=== PATIENT | female | born 1965 | race African-American/Black ===

== ENCOUNTER 2019-02-27 10:01 | Observation (INO) ==
[2019-02-27] MEDS ORDERED: ASPIRIN 325 MG TABLET PO STA (10:22)
[2019-02-27] MEDS ORDERED: SODIUM CHLORIDE 0.9% 1,000 ML IV STA ×4 (10:26→13:51)
[2019-02-27] MEDS ORDERED: ONDANSETRON 4 MG/2 ML VIAL IV STA (10:27)
[2019-02-27] MEDS ORDERED: HYDROmorphone 2 MG/1 ML VIAL IV STA (10:27)
[2019-02-27 10:32] LABS: Basophils % 1.1 % (0.0-0.8); Hematocrit 41.4 VOL% (35.7-47.0); Hemoglobin 14.6 GM/DL (12.0-16.0); Immature Granulocytes % 0.6 %; Immature Granulocytes Absolute 0.02 #; Lymphocytes # 0.9 10*3/uL (1.4-4.0); Lymphocytes % 26.1 % (21.3-54.2); Mean Corpuscular HGB Conc 35.3 GM/DL (32-36); Mean Corpuscular Volume 91.8 FL (87-102); Mean Platelet Volume 9.3 FL (9.6-12.0); Monocytes % 7.6 % (1.7-12.7); Neutrophils % 64.6 % (38.7-73.9); Platelet Count 150 T/CUMM (130-400); Red Blood Count 4.51 MC/CUMM (3.8-5.5); White Blood Count 3.6 T/CUMM (4-12)
[2019-02-27 10:41] LABS: INR 1.1; Partial Thromboplastin Time 25.8 SECS (20.8-36.0)
[2019-02-27 11:00] LABS: Albumin 3.5 G/DL (3.4-5.0); Bilirubin,Total 1.9 MG/DL (0.2-1.0); Calcium 9.3 MG/DL (8.5-10.1); Osmolality,Calculated 274.5 MOS/KG (273-304); Total Protein 8.5 G/DL (6.4-8.3)
[2019-02-27 12:16] LABS: Apearance,Urine CLEAR (Clear); Bilirubin,Urine Negative (Negative); Blood, Urine Negative (Negative); Glucose,Urine (UA) Negative (Negative); Ketones,Urine 5 mg/dL (Negative); Mucus,Urine Occasional /LPF (Occasional); Nitrite,Urine Negative (Negative); Protein,Urine Negative; RBC,Urine 1 /HPF (0-4); Squamous Epithelial Cell,Urine Occasional /HPF (0-10); Urine Color Yellow (Yellow); Urine Specific Gravity > 1.060 (1.001-1.035)
[2019-02-27 12:20] LABS: Barbiturates Screen,Urine Negative (Negative); Benzodiazepines Screen,Urine Negative (Negative); Cannabinoid Screen,Urine Negative (Negative); Opiate Screen,Urine Positive (Negative); Phencyclidine Screen,Urine Negative (Negative)
[2019-02-27] MEDS ORDERED: ACETAMINOPHEN 325 MG TABLET PO PRN (13:00)
[2019-02-27] MEDS ORDERED: LACTULOSE 20 GM/30 ML UDCUP PO PRN (13:00)
[2019-02-27] MEDS ORDERED: THIAMINE INJ 100 MG, FOLIC ACID INJ 1 MG, MULTIVITAMIN INJ 10 ML in SODIUM CHLORIDE 0.9... IV ONE (13:16)
[2019-02-27] MEDS ORDERED: LORazepam 2 MG/1 ML VIAL IV PRN (13:16)
[2019-02-27] MEDS ORDERED: ENOXAPARIN 40 MG/0.4 ML SYRINGE SUBCUT SCH (13:30)
[2019-02-27 13:36] LABS: Risk Ratio 2.08; Thyroid Stimulating Hormone 0.841 uIU/ml (0.358-3.74); VLDL CHOLESTEROL 21.6 MG/DL
[2019-02-27] MEDS ORDERED: chlordiazePOXIDE 25 MG CAPSULE PO PRN (13:52)
[2019-02-27] MEDS: SODIUM CHLORIDE 0.9% 1,000 ML IV SCH ×2 (16:19→22:54)
[2019-02-27] MEDS: ONDANSETRON 4 MG/2 ML VIAL IV PRN (16:28)
[2019-02-27] MEDS: CIPROFLOXACIN INJ 400 MG in PREMIX 1 EACH IV SCH (16:29)
[2019-02-27] MEDS: METOPROLOL TARTRATE 5 MG/5 ML VIAL IV SCH ×2 (16:36→22:53)
[2019-02-27 16:51] LABS: Troponin I < 0.015 NG/ML (0.00-0.045)
[2019-02-27] MEDS ORDERED: DEXTROSE 10% 250 ML BAG IV PRN (17:00)
[2019-02-27] MEDS ORDERED: GLUCAGON 1 MG VIAL IM PRN (17:00)
[2019-02-27] MEDS: INSULIN LISPRO 100 UNIT/ML SUBCUT SCH (18:10)
[2019-02-27 21:42] LABS: Troponin I < 0.015 NG/ML (0.00-0.045)
[2019-02-27] MEDS: DIVALPROEX 250 MG TABLET PO SCH (21:56)
[2019-02-27] MEDS: chlordiazePOXIDE 25 MG CAPSULE PO SCH (21:57)
[2019-02-27] MEDS: PANTOPRAZOLE 40 MG VIAL IV SCH (21:57)
[2019-02-28] MEDS: METOPROLOL TARTRATE 5 MG/5 ML VIAL IV SCH ×4 (05:12→22:29)
[2019-02-28] MEDS: CIPROFLOXACIN INJ 400 MG in PREMIX 1 EACH IV SCH ×2 (05:13→16:48)
[2019-02-28 05:29] LABS: Basophils % 0.6 % (0.0-0.8); Eosinophils % 1.2 % (0.00-10.9); Hematocrit 33.5 VOL% (35.7-47.0); Hemoglobin 11.7 GM/DL (12.0-16.0); Immature Granulocytes % 0.3 %; Immature Granulocytes Absolute 0.01 #; Lymphocytes # 1.9 10*3/uL (1.4-4.0); Lymphocytes % 55.7 % (21.3-54.2); Mean Corpuscular HGB Conc 34.9 GM/DL (32-36); Mean Corpuscular Volume 93.8 FL (87-102); Mean Platelet Volume 9.9 FL (9.6-12.0); Monocytes % 8.4 % (1.7-12.7); Neutrophils % 33.8 % (38.7-73.9); Platelet Count 120 T/CUMM (130-400); Red Blood Count 3.57 MC/CUMM (3.8-5.5); Red Cell Distribution Width 18.1 % (9.3-17.3); White Blood Count 3.3 T/CUMM (4-12)
[2019-02-28 05:45] LABS: Calcium 7.9 MG/DL (8.5-10.1)
[2019-02-28 05:48] LABS: Albumin 2.6 G/DL (3.4-5.0); Bilirubin,Direct 0.61 MG/DL (0.0-0.20); Bilirubin,Indirect 1.3 MG/DL (0.0-1.0); Bilirubin,Total 1.9 MG/DL (0.2-1.0); Total Protein 6.4 G/DL (6.4-8.3)
[2019-02-28 05:49] LABS: Eosinophils 1 % (0-10); Lymphocytes 48 % (20-55); Segmented Neutrophils 46 % (50-85); Total Cells Counted 100
[2019-02-28 05:50] LABS: Atypical Lymphocytes Few; Hypochromasia 1+; Platelet Estimate Normal
[2019-02-28] MEDS: SODIUM CHLORIDE 0.9% 1,000 ML IV SCH ×2 (06:19→14:56)
[2019-02-28] MEDS: INSULIN LISPRO 100 UNIT/ML SUBCUT SCH ×2 (08:40→17:43)
[2019-02-28] MEDS: chlordiazePOXIDE 25 MG CAPSULE PO SCH ×2 (08:52→15:13)
[2019-02-28] MEDS: DIVALPROEX 250 MG TABLET PO SCH ×2 (08:52→22:28)
[2019-02-28] MEDS: PANTOPRAZOLE 40 MG VIAL IV SCH ×2 (08:53→22:35)
[2019-02-28] MEDS ORDERED: LIDOCAINE 100 MG/5 ML SYRINGE ONE (09:00)
[2019-02-28] MEDS ORDERED: propofoL 200 MG/20 ML VIAL IV ONE (09:00)
[2019-02-28] MEDS ORDERED: POTASSIUM CHLORIDE 20 MEQ/15 ML UDCUP PO ONE (11:21)
[2019-02-28] MEDS ORDERED: LACTATED RINGERS 1,000 ML IV SCH (12:00)
[2019-02-28] MEDS: ONDANSETRON 4 MG/2 ML VIAL IV PRN (15:12)
[2019-02-28 16:02] LABS: Hepatitis B Core IgM Quant 0.11 Index; Hepatitis B Surface Ag Quant < 0.10 Index; Hepatitis B Surface Ag Result Negative (Negative); Hepatitis C Virus Ab Quant 0.09 Index; Hepatitis C Virus Ab Result Negative (Negative)
[2019-02-28] MEDS: amLODIPine 5 MG TABLET PO SCH (16:47)
[2019-02-28] MEDS: chlordiazePOXIDE 25 MG CAPSULE PO PRN (22:28)
[2019-03-01 05:18] LABS: Basophils % 0.9 % (0.0-0.8); Eosinophils # 0.1 10*3/uL (0.0-0.87); Eosinophils % 2.1 % (0.00-10.9); Hematocrit 32.6 VOL% (35.7-47.0); Hemoglobin 11.2 GM/DL (12.0-16.0); Immature Granulocytes % 0.3 %; Immature Granulocytes Absolute 0.01 #; Lymphocytes # 2.2 10*3/uL (1.4-4.0); Lymphocytes % 65.5 % (21.3-54.2); Mean Corpuscular HGB Conc 34.4 GM/DL (32-36); Mean Corpuscular Volume 93.4 FL (87-102); Mean Platelet Volume 9.4 FL (9.6-12.0); Monocytes % 10.1 % (1.7-12.7); Neutrophils % 21.1 % (38.7-73.9); Platelet Count 113 T/CUMM (130-400); Red Blood Count 3.49 MC/CUMM (3.8-5.5); Red Cell Distribution Width 17.5 % (9.3-17.3); White Blood Count 3.3 T/CUMM (4-12)
[2019-03-01 05:39] LABS: Atypical Lymphocytes Few; Calcium 7.9 MG/DL (8.5-10.1); Eosinophils 3 % (0-10); Hypochromasia 1+; Lymphocytes 62 % (20-55); Platelet Estimate Decreased; Segmented Neutrophils 27 % (50-85); Total Cells Counted 100
[2019-03-01] MEDS: SODIUM CHLORIDE 0.9% 1,000 ML IV SCH ×2 (05:51→05:52)
[2019-03-01] MEDS: METOPROLOL TARTRATE 5 MG/5 ML VIAL IV SCH (05:52)
[2019-03-01] MEDS: CIPROFLOXACIN INJ 400 MG in PREMIX 1 EACH IV SCH (05:54)
[2019-03-01 08:12] VITALS: BP 131/67
[2019-03-01] MEDS: INSULIN LISPRO 100 UNIT/ML SUBCUT SCH (08:44)
[2019-03-01] MEDS: DIVALPROEX 250 MG TABLET PO SCH (08:48)
[2019-03-01] MEDS: amLODIPine 5 MG TABLET PO SCH (08:48)
[2019-03-01] MEDS: PANTOPRAZOLE 40 MG VIAL IV SCH (08:48)
[2019-03-01] MEDS: chlordiazePOXIDE 25 MG CAPSULE PO PRN (08:54)
== END 2019-03-01 11:52 | disposition home or self-care (01) ==
LOC: EDUNIT# → EDBD → N.EDINP 10:01 → N.ED 10:01 → N.2W 15:01
PROVIDERS: ADMIT Family Medicine; ATTEND Family Medicine